=== PATIENT | female | born 2000 | race African-American/Black ===

== ENCOUNTER → 2024-03-27 08:51 | Outpatient (CLI) | payer OTHER, MEDICAID, SELFPAY | PROVIDERS: PCP Nurse Practitioner Family; Referring Provider Obstetrics & Gynecology; Visit Provider Obstetrics & Gynecology | DX: R10.2 Pelvic and perineal pain (principal) | CPT/HCPCS: 87491; 87563; 87591 ==

== ENCOUNTER 2024-09-03 10:25 | Day surgery (SDC) | payer OTHER, SELFPAY ==
[2024-08-28 13:49] VITALS: BMI 33.9
[2024-09-03] VITALS (8 sets, daily range): BP systolic 111–122; BP diastolic 55–82; PULSE 87–120; RESP 1–29; TEMP 36.5–36.8; O2SAT 97–100; BMI 32.5
--- NOTE | 2024-09-03 | PATH_ITS ---
[facility] Accession Number: [id number] No. of containers..01 Tissue . 01 Material submitted: . uterus - UTERUS, CERVIX AND BILATERAL FALLOPIAN TUBES . 01 Diagnosis: UTERUS, CERVIX, BILATERAL FALLOPIAN TUBES, HYSTERECTOMY AND BILATERAL SALPINGECTOMY: Histologically unremarkable cervix, uterus, secretory endometrium, and bilateral fimbriated fallopian tubes. Negative for malignancy. [facility] 09/05/2024 1420 Local . 01 Electronically signed: . Neida Mendieta DO, Pathologist NPI- [id number] . 01 Gross description: . Received in formalin with two patient identifiers and uterus, cervix, bilateral fallopian tubes, is an intact uterus (114 grams, 8.5 cm superior to inferior, 5.7 cm medial to lateral, and 5.0 cm anterior to posterior) with attached cervix (3.2 x 3.0 cm) and two detached, unoriented fallopian tubes (5.7 x 0.7 cm and 4.5 x 1.0 cm, respectively), with no additional adnexa. The ectocervix is pink-vu, smooth, and glistening with a patulous os, 1.0 cm in diameter. The anterior paracervical margin is inked blue while the posterior paracervical margin is inked black. . The endocervical canal has vu herringbone mucosa and measures 2.8 cm in length. The endometrial cavity is 2.5 cm from cornu to cornu and 4.9 cm in length with pink-vu, lush endometrium that averages 0.2 cm thick. The myometrium is pink-vu, moderately trabecular, and measures up to 1.9 cm in maximum thickness with nodules or lesions identified. . Both tubes have violaceous, smooth serosa with cystic structures up to 0.2 cm in greatest dimension filled with cloudy serous fluid. The lumen are stellate and unremarkable. [facility] sections are submitted as follows: . A1: Anterior cervix. A2: Posterior cervix. A3: Anterior full thickness section. A4: Posterior full thickness section. A5: Longer fallopian tube to include one-half of bisected fimbriae and cross sections. A6: Taylor fallopian tube to include one-half of bisected fimbriae and cross sections. ([id number]) /MRV 09/04/2024 1508 Local . 01 Pathologist provided ICD-10: N94.12 . 01 CPT . 956362 Specimen Comment: A courtesy copy of this report has been sent to [facility] Performed at: [address] [address], [place], [place] [id number] MD Otis Nicole MD Phone: [phone]
--- NOTE | 2024-09-03 10:48 | PM.PREOP ---
Pre-operative Note Interval Note History & Physical reviewed/Exam performed by Physician: Yes Changes to H&P: No H&P completed within 30 days and has changed as indicated here:: 08/13/24 ASA Class (for procedural sedation): II
[2024-09-03] MEDS: GENTAMICIN IV (10:55)
[2024-09-03] MEDS: SODIUM CHLORIDE 0.9% IV (10:55)
[2024-09-03 11:04] LABS: Add Manual Diff / Slide Review NO; Basophils Absolute Auto 0 /uL (0-100); Basophils Percent Auto 0.3 % (0-2); Eosinophils Absolute Auto 100 /uL (0-450); Eosinophils Percent Auto 0.9 % (2-4); Hematocrit 40.1 % (36-46); Hemoglobin 13.4 g/dL (12.0-16.0); Lymphocytes Absolute Auto 2300 /uL (1100-4500); Lymphocytes Percent Auto 33.8 % (25-40); Mean Corpuscular HGB Conc 33.3 % (30-36); Mean Corpuscular Hemoglobin 28.6 PG (26-34); Monocytes Absolute Auto 400 /uL (0-900); Monocytes Percent Auto 6.4 % (3-14); Neutrophils Absolute Auto 3900 /uL (1500-7000); Neutrophils Percent Auto 58.6 % (50-75); Platelet Count 307 X10^3/uL (150-400); Red Blood Cell Count 4.67 X10^6/uL (4.0-5.2); Red Cell Distribution Width 13.1 % (11.6-14.8); White Blood Cell Count 6.7 X10^3/uL (4.5-11.0)
[2024-09-03] MEDS: ACETAMINOPHEN 325 MG TABLET 975 MG PO (11:12)
[2024-09-03] MEDS: LACTATED RINGERS 1,000 ML 42 ML IV ×2 (11:13→13:15)
[2024-09-03] MEDS: CLINDAMYCIN 900 MG/50 ML PIGGYBACK 50 MG IV (11:39)
--- NOTE | 2024-09-03 11:53 | SUR.OPER ---
Lithotomy on padded OR bed, head on pillow, arms secured on padded arm boards at <90 degrees abduction. Legs secured in padded yellow fins stirrups.
[2024-09-03] MEDS: BUPIVACAINE 0.25% W/ EPI 30 ML VIAL INJ (12:16)
[2024-09-03] MEDS: MORPHINE 2 MG/ML INJ IV (14:42)
--- NOTE | 2024-09-03 14:59 | PM.OP.1 ---
Operative Date/Time/Diagnoses Date of procedure: 09/03/24 Time of procedure: 11:30 Pre-op diagnosis: chronic pelvic pain, AUB Post-op diagnosis: same Procedure & Clinicians Procedure: Laparoscopic assisted vaginal hysterectomy, bilateral salpingectomy Same procedure as scheduled: Yes Indications: AUB, chronic pelvic pain Surgeon: Dot Ulloa Master [employer]: Yuliana Condon Click Yes if Unassisted: No Anesthesia Type: General Operative Notes Findings: normal external female genitalia, perineum, anus, vagina, cervix intrabdominal survey notable for diffuse filmy adhesions within posterior CDS c/w possible endometriosis grossly normal appearing bilateral fallopian tubes and ovaries globular hyperemic appearance of uterus without gross anomaly Closure Type: primary Specimen(s): other (uterus, cervix, bilateral fallopian tubes ) Estimated Blood Loss (mL): 25 Blood products transfused: none Procedure in detail: The patient was taken to the operating room, placed on the operating table in the supine position and intubated with ETT.? The patient was then placed in the lithotomy position with her legs in Otto stirrups.? The patient was then examined under anesthesia with the above findings, then prepped and draped in a sterile fashion.? A lowry catheter was placed.? Time out was performed. A sterile speculum was inserted into the vagina.? The anterior cervix was grasped with single tooth tenaculum and under gentle traction the uterus was sounded to 8cm and the medium VCare manipulator was placed in the standard fashion and the balloon was inflated.? Attention was then turned to the abdominal portion of the case. A 5mm incision was made infraumbilically and abdominal entry was achieved under direct visualization using the 5mm VisaPort trocar.? Abdomen was insufflated to 15mmHg.? One right lateral and two left lateral 5-mm ports were placed in a similar manner under direct visualization.? The uterus was anteverted and abdominal survey was noted with findings as noted above. The Powerseal was used to dissect bilateral fallopian tubes away from the mesosalpinx.? The utero-ovarian artery was burned and ligated followed by dissection of the round ligament with the Powerseal device.? This was repeated on the contralateral side.? The uterine artery was then skeletonized after development of a bladder flap, coagulated, and divided. Once hemostasis was assured on the left side attention was turned to the right and the infundibulopelvic ligament, mesosalpinx, round ligament, and broad ligament were dissected in a fashion exactly the same as it had been on the left. The right uterine artery was then visualized after skeletonization and coagulated and divided. The uterus was seen to jamison after coagulation of both arteries and the cup was identified through the vaginal muscularis at its insertion with the body of the cervix. Circumferential excision of the vaginal cup was accomplished without difficulty using monopolar current and the uterus mobilized. Pneumoperitoneum was vented and the uterus was then removed through the vagina and preparations made for the vaginal portion of this case. A weighted speculum was placed in the vagina. The lateral apices of the vaginal cuff were identified and grasped using wide allis clamps. The vaginal cuff was then closed with 0-vicryl in serial figure-of-8 suture with incorporation of the uterosacral ligaments for continued apical support. Hemostasis confirmed and moistened vaginal packing placed. Gloves were changed and attention was once more returned to laparoscopic portion of case. Laparoscopic intra-abdominal survey repeated. The pelvis was suction irrigated with noted hemostasis of all wound beds. 20cc diluted bupivicaine instilled within posterior culdesac for further analgesia. Lateral trocars removed under direct visualization. The pneumoperitoneum was again vented and the infraumbilical trocar was removed. All incisions were closed with 4-0 monocryl in subcuticular fashion followed by application of dermabond. All counts correct x2. Patient was awakened from anesthesia, extubated without difficulty and transported to PACU in stable condition. Complications: none Post-operative Condition: stable Disposition: PACU
[2024-09-03] MEDS: OXYCODONE/ACETAMINOPHEN 5/325 TABLET 1 TAB PO (15:26)
[2024-09-03] MEDS: MORPHINE 4 MG/ML INJ IV (16:46)
[2024-09-03 16:51] LABS: Add Manual Diff / Slide Review NO; Basophils Absolute Auto 0 /uL (0-100); Basophils Percent Auto 0.1 % (0-2); Eosinophils Absolute Auto 0 /uL (0-450); Eosinophils Percent Auto 0.1 % (2-4); Hematocrit 37.1 % (36-46); Hemoglobin 12.1 g/dL (12.0-16.0); Lymphocytes Absolute Auto 500 /uL (1100-4500); Lymphocytes Percent Auto 4.3 % (25-40); Mean Corpuscular HGB Conc 32.5 % (30-36); Mean Corpuscular Hemoglobin 28.1 PG (26-34); Mean Corpuscular Volume 86.3 fL (80-100); Monocytes Absolute Auto 100 /uL (0-900); Monocytes Percent Auto 0.8 % (3-14); Neutrophils Absolute Auto 11000 /uL (1500-7000); Neutrophils Percent Auto 94.7 % (50-75); Platelet Count 272 X10^3/uL (150-400); Red Cell Distribution Width 13.5 % (11.6-14.8); White Blood Cell Count 11.6 X10^3/uL (4.5-11.0)
[2024-09-03] MEDS: ACETAMINOPHEN 325 MG TABLET 650 MG PO ×2 (16:57→22:55)
[2024-09-03] MEDS: HYDROCODONE/ACET 5/325 TABLET 1 TAB PO ×2 (18:43→22:55)
[2024-09-03] MEDS: KETOROLAC 30 MG/ML VIAL IV (18:44)
[2024-09-04] VITALS: BP 127/57; PULSE 88; RESP 18; TEMP 36.7; O2SAT 97
[2024-09-04] MEDS: KETOROLAC 30 MG/ML VIAL IV ×3 (01:57→12:38)
[2024-09-04] MEDS: ACETAMINOPHEN 325 MG TABLET 650 MG PO (05:10)
--- NOTE | 2024-09-04 07:07 | P.DS_ITS ---
History of Present Illness History of Present Illness Date Patient Seen: 09/04/24 Time Patient Seen: 07:07 Date of Onset of Symptoms: 09/03/24 Chief complaint: POD1 s/p LAVH/BS Narrative: Pt resting in bed, states adequate analgesia overnight, +flatus, tolerating diet. Has not yet had lowry removed/no ambulation yet. Notes persistent mid upper back pain c/w diaphragmatic irritation from pneumoperitoneum. Discharge Providers Provider Date of admission: 09/03/24 Discharge Date: 09/04/24 Primary care physician: CAROLYN Perkins Discharge provider: Dot Ulloa MD Summary Hospital Course Discharge Diagnosis: s/p LAVH/BS Hospital Course: 24yo admitted to facility 09/03/24 for planned definitive surgical management of persistent deep chronic pelvic pain/dyspareunia refractory to conservative management. Patient underwent procedure without difficulty, vaginal closure of cuff secondary with vaginal packing and lowry left in place overnight. Lowry catheter was discontinued AM of POD1. Pt able to void, ambulate independently, adequate analagesia with PO, +ROBF. Patient was discharged to home on POD1 meeting all discharge milestones, strict activity restrictions reviewed prior to discharge. Status at Discharge Cognitive/behavioral status at discharge: oriented Functional status at discharge: independent ambulation Overall status at discharge: patient is back to baseline Time Spent with Patient Time spent: Less than 30 minutes Exam Vital Signs (past 8 hours): - 09/04/24 00:00 Temperature 98.0 F Pulse Rate 88 Respiratory Rate 18 Blood Pressure 127/57 L Pulse Oximetry 97 Oxygen Flow Rate 0 Oxygen Delivery Method Room Air Oxygen Flow Rate 0 Const General: cooperative, comfortable and well developed Nutritional Appearance: obese Orientation: alert, awake and oriented x3 Limitations: mental status not altered Resp Effort & Inspection: normal respiratory effort and able to speak in complete sentences Cardio Pulses: normal peripheral pulses GI Inspection: obesity Palpation: soft Auscultation: normal bowel sounds Other: trocar insertion sites c/d/i, dermabond in place, very mild TTP without rebound/guarding Other: vaginal packing removed, <50% saturated Back/Spine/Pelvis Back: normal to inspection Skin General: no rashes or lesions noted Neuro General: patient alert, patient awake and patient oriented x3 Extrem General: normal to inspection Other: SCDs in place Psych Mental Status: mental status grossly normal Judgment: judgment good Objective Labs 09/03/24 16:32 Labs: Laboratory Results - last 24 hr 09/03/24 09/03/24 10:35 16:32 WBC 6.7 11.6 H D RBC 4.67 4.30 Hgb 13.4 12.1 Hct 40.1 37.1 MCV 86.0 86.3 MCH 28.6 28.1 MCHC 33.3 32.5 RDW 13.1 13.5 Plt Count 307 272 Neut % (Auto) 58.6 94.7 H D Lymph % (Auto) 33.8 4.3 L D [place] % (Auto) 6.4 0.8 L Eos % (Auto) 0.9 L 0.1 L Baso % (Auto) 0.3 0.1 Neut # (Auto) 3900 04478 H Lymph # (Auto) 2300 500 L [place] # (Auto) 400 100 Eos # (Auto) 100 0 Baso # (Auto) 0 0 PFSH Medical History (Updated 08/28/24 @ 14:03 by Flavia Marte RN) PCOS (polycystic ovarian syndrome) Asthma (~2009) Anxiety (~2017) Fractures (~2011) Ankle pain (~2011) Pelvic floor dysfunction in female Deep dyspareunia Surgical History (Updated 04/16/24 @ 20:59 by Griselda Cho) Anesthesia History of repair of ACL (~02/2016) Family History (Updated 04/16/24 @ 21:00 by Griselda Cho) Mother History of hysterectomy History of endometriosis Social History household members: spouse and children Smoking Status: Never smoker alcohol intake: current Discharge Assessment & Plan Assessment and Plan Assessment: 24yo POD1 s/p LAVH/BS, doing well Postop excellent postop course strict activity precautions reviewed planned 2wk postop Discharge Plan Discharge Plan Patient Disposition: Home Provider Discharge Comment: No lifting >10-15lbs for 6 weeks. Nothing in the vagina for 6 weeks - no tampons, intercourse, douching, swimming in fresh water/pools/hot tubs. Tub baths are okay after 2 weeks if the tub is cleaned well first. Discharge orders & Medications Discharge Orders: Discharge (Order); Ordered 09/04/24 Ordered By: Dot Ulloa Prescriptions: New ibuprofen 600 mg tablet 600 mg PO TID Qty: 30 0RF hydrocodone-acetaminophen 5-325 mg tablet 1 tab PO Q6H PRN (Reason: pain) Qty: 12 0RF sennosides [Senna Lax] 8.6 mg tablet 8.6 mg PO BEDTIME Qty: 30 0RF Follow up/Referrals: Echo Dejesus ARNP [Primary Care Provider] - Diet/Activity/Treatments Diet: Regular Skin/Wound/Dressing Care Report to your healthcare provider any signs of infection, such as:: chills, fever, increased pain and unusual drainage Visit Report/Discharge Packet Instructions: DI for Hysterectomy, DI for Laparoscopy, DI for Prescription Opioid Use Stand Alone Forms: Patient Portal/API Discharge Data Primary Care Provider: Echo Dejesus Attending Provider: Dot Ulloa VTE Deep Vein Thrombosis/Pulmonary Embolism Present on Admission: No PROFEE Charge Codes Discharge inpatient/observation: [id number]
[2024-09-04 08:00] VITALS: BP 113/68; PULSE 63; RESP 18; TEMP 37; O2SAT 97
[2024-09-04] MEDS: DOCUSATE 100 MG CAPSULE PO (08:34)
[2024-09-04] MEDS: MORPHINE 2 MG/ML INJ IV ×2 (09:52→15:05)
--- NOTE | 2024-09-04 11:12 | CM.DANOTE ---
DCP Assessment Note pt is a 24yo F here POD1 lap assisted hysterectomy with Dr. Ulloa. PCP Echo BONNER and Ramsey diaz UPPER CASER reviewed EMR. Per chart, pt likely to dc later today after voiding indep. Per RN, no obvious/anticipated CM needs. UPPER CASER met with pt in room and introduced self and role. Pt reports living with spouse in [place], indep/drives at baseline. Reports voiding indep, eager to dc home. denies any CM needs at this time P: dc home with family support , transport in POV. no identified barriers to safe dc home at this time, CM team will continue to follow as needed ROBERT Raymundo Discharge Planning/Care Management CM Discharge Assessment Start: 09/04/24 11:02 Freq: Status: Active Protocol: Document 09/04/24 11:03 (Rec: 09/04/24 11:12 [id number]) Discharge Planning Assessment Assigned [employer] ROBERT Shipley DPOA/Assigned Designee Name Flavio, spouse Contact Information [phone] Advance Directives? No History Provided By Patient Prior Living Arrangements House Household Members spouse,children Type of transporation used prior to Drives own vehicle admit Independent with ADL's Yes Is patient alert and oriented? Yes Caregiver for Another Yes Barriers to Discharge No Discharge Plan Home Referrals Initiated None needed Review Status In Process Please Provide Date Initial DC 09/04/24 Assessment Was Performed Next Review Type Continued Stay Review Pre-Anesthesia Assessment Start: 08/28/24 13:49 Freq: Status: Active Protocol: Document 08/28/24 13:49 CAB (Rec: 08/28/24 14:03 CAB [id number]) Pre-Anesthesia Assessment PAC Comment Chart review 08/28/24 Preferred Name Roxana (Pronouced Alannah) Patient Information Reviewed Via Chart Review Primary Care Provider Echo Dejesus Seen Specialist in Last 12 Months Yes Specialist Seen Resaw Machine Operator Primary Language Romansh Lead Nitrate Processor Required No Height 149.86 cm Weight 76.204 kg Body Mass Index (BMI) 33.9 Barriers to Learning None Hx Anesthesia Reactions No Anesthesia Review Requested No Remote Broadcast Engineer No Smoking Status Never smoker Pain Present Pain Reported History of Falling (Recent or History of No ) Patient is completely paralyzed or No completely immobile Mental Status Oriented to own ability Is patient on oxygen? No Hx Sleep Apnea No Currently Taking a Beta Trice No Anti-Coagulant Therapy No Has a Business Objects No Cardiac Testing No Hx Pacemaker/ICD No Pacemaker Rep Required? No Cardiac Clearance Received No Genitourinary Symptoms Pelvic Pain Urinary Catheter Present No Hx Urinary Self Catheterization No Diabetes No Patient No Marital Status Lives With spouse,children Patient Discharge Plan Description Return Home
[2024-09-04 11:21] VITALS: TEMP 36.9
[2024-09-04] MEDS: HYDROCODONE/ACET 5/325 TABLET 1 TAB PO (11:21)
[2024-09-04 12:38] VITALS: TEMP 36.8
--- NOTE | 2024-09-04 15:33 | PC.NURSE ---
Discharge Note Patient A&O, VSS, RA, no complaints of pain/discomfort. Discharge packet reviewed with patient, all questions/concerns addressed. PIV discontinued. Patient able to dress self and pack all belongings. Patient taken down via wheelchair to POV accompanied by mom.
== END 2024-09-04 15:00 | disposition home or self-care (01) ==
LOC: OR 10:28 → AC 10:33
PROVIDERS: PCP Nurse Practitioner Family; Referring Provider Obstetrics & Gynecology; Visit Provider Obstetrics & Gynecology
PROC: 0UT94ZZ Resection of Uterus, Percutaneous Endoscopic Approach (ICD-10-PCS; CPT 58571; principal; 2024-09-03 13:00)
DX: N94.12 Deep dyspareunia (principal); N93.9 Abnormal uterine and vaginal bleeding, unspecified; R10.2 Pelvic and perineal pain; G89.29 Other chronic pain
CPT/HCPCS: 58571; 36415; 81025; 85025; J0330; J1100; J1171; J1885; J2250; J2270; J2405; J2704; J3010; J3490

== ENCOUNTER 2025-01-15 07:30 | Outpatient (RCR) | payer OTHER, SELFPAY ==
[2024-09-03 11:07] VITALS: BMI 32.5
--- NOTE | 2025-01-14 20:40 | PT.OIE ---
Addendum entered and electronically signed by Greta Lopez, PT 01/15/25 08:44: Error in reporting request for referral/consult of vaginal assessment. Please disregard request. Original Note: Current Diagnoses Deep dyspareunia (01/14/25) Past Medical History (Last Updated 01/09/25 @ 12:18 by Dot Ulloa MD) Ankle pain (~2011) Anxiety (~2017) Asthma (~2009) Deep dyspareunia Deep dyspareunia in female Endometriosis determined by laparoscopy Fractures (~2011) Menorrhagia PCOS (polycystic ovarian syndrome) Pelvic floor dysfunction in female Past Surgical History (Last Updated 01/09/25 @ 12:18 by Dot Ulloa MD) Anesthesia History of repair of ACL (~02/2016) S/P hysterectomy Visit Care Team Role Provider Type CAROLYN Perkins Family Provider Non-Staff Primary Care Provider Specialty: Medical Address: [address] [place] [address], [id number] Email: Dot Ulloa MD Attending Provider Physician Referring Provider Specialty: SETTLEMENT WORKER Address: [address] [place] [address], [address], [address] Email: [email or web address] Physical Therapy Initial Evaluation PT-OP-A Visit Information Start: 01/13/25 19:43 Freq: Status: Active Protocol: Document 01/14/25 10:46 LRN (Rec: 01/14/25 11:34 LRN Laptop) Out-Patient Physical Therapy Visit Information Visit Information Visit Type Initial Evaluation Visit Start Time 10:46 Visit Stop Time 11:32 Visit Number 1 Evaluation Information Evaluation Date 01/14/25 Precautions Precautions Hysterectomy - 09/03/24, ACL rpr - 02/2016 PT-OP-B Current Condition Start: 01/13/25 19:43 Freq: Status: Active Protocol: Document 01/14/25 10:46 LRN (Rec: 01/14/25 11:34 LRN Laptop) Current Condition History of Current Condition Onset Date 01/2023 Current Complaints Pain with deep thrust during intercourse. History of Current Pain with intercourse, had hyste due to inflamed cervix Condition and uterus; therefore now pain with intercourse. She states Dr. Ulloa said there was evidence of endometriosis (not official diagnosed). Has had severe periods and cramps since her period started. Was diagnosed with PCOS ~ age 16. During 3rd (all pregnancies vaginal, no complications, had episiotomy with 1st born, no tearing with other children, ) had pain with intercourse, then after never went away. Better since hyste surgery, began to get slightly painful intercourse 2 wks ago. Vaginal appt last week with vaginal ultrasound, doctor states she thinks endometriosis could be coming back with scar tissue. She thinks she has swelling with her cycle. She notes that with intercourse, when the thrust is aimed towards her back (partner positioned on top or from behind) there is no pain. Pain is present when thrust is pointed towards the abdomen. Thought is that there is abdominal scar tissue causing the pain. She reports intercourse 7x/wk, always pain, but is minimal with adjust positioning, and sometimes w/o full penetration. Denies pain any other time, other than with intercourse. Prior Treatments and PT in [facility] PT, without internal Tests work prior to surgery. Developmental History Developmental Children ages 1, 2, 3 (first child to turn 2 in January). History Normal bowel types 3,4 No urinary leakage or pain with urination, had pain with use of tampons 6 wks and would fall out, prior to surgery. Treatment Goals Patient/Caregiver Pt goals: Goals Reduce or eliminate pain with intercourse. 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 Factors That May Lives in [facility] Effect Therapy/ Wants to be able to have intercourse 7x/week. Recovery PT-OP-C Subjective Start: 01/13/25 19:43 Freq: Status: Active Protocol: Document 01/14/25 10:46 LRN (Rec: 01/14/25 11:34 LRN Laptop) Patient Questionnaires Pelvic Pain and Urgency/Frequency Patient Symptom Scale Pelvic Pain Score 9 OP-PT Pain Assessment Pain Assessment Grid Paper Pain Yes Assessment Grid Completed Location LBP Pain Location Across Sacral and Iliac Crest level (area of epidurals) Details Intensity 4 Scale Used Numeric (0 - 10) Description Aching Frequency Intermittent Other Pain Prolonged standing Aggravating Factors Lower abdomen Pain Location Lower abdomen pain with deep thrust Details Intensity 6 Scale Used Numeric (0 - 10) Description Sharp Other Pain When thrust is directed towards abdomen. Aggravating Factors PT-OP-I Pelvic Floor Start: 01/13/25 19:43 Freq: Status: Active Protocol: Document 01/14/25 10:46 LRN (Rec: 01/14/25 11:34 LRN Laptop) Pelvic Floor Assessment Urine Voiding Frequency 3-6 Pelvic Clock Pelvic Clock Other No tenderness or tightness noted. Contraction Ability Manual Muscle 3 Testing Left Manual Muscle 3 Testing Right Manual Muscle 3 Testing Anterior Manual Muscle 3 Testing Posterior Muscle Endurance ( 10 Seconds) Number of Quick 3 Contractions In 10 Seconds Comments Pelvic Floor No Bowel or bladder dysfunction. Comments Pt had no significant superficial PF contractions noted . Deep PF contractions are 3/5 PT-OP-J Posture/Palpation/Skin Start: 01/13/25 19:43 Freq: Status: Active Protocol: Document 01/14/25 10:46 LRN (Rec: 01/14/25 11:34 LRN Laptop) Posture Evaluation Position Standing Head/C-Spine Posture Forward Head L-Spine Posture Increased Lordosis Shoulder Posture (L) Elevated Scapula Posture (R) Depressed Foot Arch (L) No Arch,(R) No Arch Comments Posture Comments Dowagers hump, L shoulder and dieudonne elbows slightly flexed, forearms slightly flexed, fingers curled Thumbs AB. PT-OP-K Range of Motion Start: 01/13/25 19:43 Freq: Status: Active Protocol: Document 01/14/25 10:46 LRN (Rec: 01/14/25 11:34 LRN Laptop) Lumbar Spine Range of Motion Lumbar Spine Active Degrees Testing Position Standing Flexion 130 Extension 35 Rotation Left 35 Rotation Right 45 Lateral Flexion Left 37 Lateral Flexion 37 Right Hip Goniometric Range of Motion Hip Right Passive Testing Position Supine Internal Rotation 30 External Rotation 55 Left Passive Testing Position Supine Internal Rotation 40 External Rotation 60 Hip ROM Limitations Hip ROM Limitations Soft Tissue Tightness PT-OP-M Strength Start: 01/13/25 19:43 Freq: Status: Active Protocol: Document 01/14/25 10:46 LRN (Rec: 01/14/25 11:34 LRN Laptop) Trunk Strength Trunk Manual Muscle Testing Flexion 4+ Good+ Hip Strength Hip Manual Muscle Testing Right Flexion (L2) 5 Normal Left Flexion (L2) 5 Normal PT-OP-Q Treatments Start: 01/13/25 19:43 Freq: Status: Active Protocol: Document 01/14/25 10:46 LRN (Rec: 01/14/25 11:34 LRN Laptop) Self-Care/Home Management Treatment Education Other Education Discussed results of evaluation, goals, treatment, and plan of care (POC) with pt; pt agreeable to evaluation, goals, treatment and POC. Activities Self-Care/Home I/S pt in supine lying with legs on wall for roll in/ Management outs x 5-10' before intercourse and during intercourse Activities hips elevated on pillow. PT-OP-T Assessment and Plan Start: 01/13/25 19:43 Freq: Status: Active Protocol: Document 01/14/25 10:46 LRN (Rec: 01/14/25 11:34 LRN Laptop) Physical Therapy Assessment Rehab Potential Rehabilitation Good Potential Evaluation Complexity Number of Personal 3 or More Factors/ Comorbidities Number of Body 4 or More Systems Impaired Clinical Evolving Presentation at Evaluation Impairments Impairments Activity Tolerance,Pain,Posture,ROM,Soft Tissue Mobility,Strength,Tone Goals Two Impairment Dyspareunia with deep thrust aimed at abdomen Usp Goal (LTG) Decrease or eliminate pain with intercourse to improve pt pleasure with intercourse and reduce hesitation for intimacy with partner. LTG Duration 04/15/25 One Impairment Pt lacks appropriate self care HEP Short Term Goal (STG Pt will be able to reduce hesitation and pain with ) intercourse with a pre intercourse routine (stretching, deep breathing and mindfulness technique). STG Duration 02/25/25 Candy Maker Helper Goal (LTG) Pt will be independent with a self care HEP of abdominal soft tissue mobilization, hip and trunk stretches. LTG Duration 04/15/25 Assessment Summary Assessment Pt is a 24 yo female who is 3G3P, who had pain with intercourse during of her third child. She underwent hyste surgery with resolve of pain until 2 wks ago she began to have slightly painful intercourse, noted with deep thrust and when the thrust is aimed at her abdomen. Her pain is less when thrust is aimed to her back. She has postural changes with increased lordosis and decreased hip rotational mobility (trunk mobility is very good). Her PF is strong and she appears to have trouble relaxing her PF between contractions. She demonstrates increased core pressure with bed transfers and restriction is felt at end of vaginal canal, indicating possible drop of her intact cervix or from bowel restriction. The pt denies bowel or bladder dysfunction. The pt will benefit from skilled physical therapy for pt education (transfer & core pressure mgmt & HEP), pelvic & hip mobility ex's, STM of abdomen and LB and use of biofeedback for neuro- education to improve pt ability to relax her PF to improve comfort with intercourse. The pt will be traveling from [facility] for therapy; therefore we will start 2x/week to get the pt placed on a HEP and for STM and education, then will reduce to 1x/week for progression of program. Physical Therapy Plan Frequency and Duration Frequency of 2x/Week Treatment Duration of 13 treatment (weeks) Plan of Care Start 01/14/25 Date Plan of Care End 04/15/25 Date Therapeutic Interventions Therapeutic Home Exercise Program,Joint Mobilizations,Manual Interventions Therapy,Neuromuscular Re-education,Self-Care/Home Management,Soft Tissue Mobilization,Therapeutic Activities,Therapeutic Exercises Modalities Biofeedback Other Referrals/Consults Referrals/Consults Assessment of bumps in vaginal canal. Recommended Next Visit Focus/Plan Next Note Type Treatment Note Next Visit Plan Dyspareunia Rehab for deep thrust pain aimed at abdomen . Assess for DR & hip/core strength, recheck PF prolapse, strength, endurance STM if pain, Biofeedback, PF training for relaxation after contraction, Exer's: hips stretches. Pt education: Relaxation techniques prior to intercourse, core pressure mgmt with transfers & ADLs. POC: Pt education, Manual therapy. Biofeedback with vaginal sensor for PF >< awareness and strengthening, Therapeutic Exercises, Therapeutic Activities, Neuromuscular Reeducation.
--- NOTE | 2025-01-15 08:41 | PT.OTN ---
Current Diagnoses Deep dyspareunia (01/15/25) Physical Therapy Treatment Note PT-OP-A Visit Information Start: 01/13/25 19:43 Freq: Status: Active Protocol: Document 01/15/25 07:30 LRN (Rec: 01/15/25 08:37 LRN Laptop) Out-Patient Physical Therapy Visit Information Visit Information Visit Type Treatment Note Visit Start Time 07:30 Visit Stop Time 08:15 Visit Number 2 Evaluation Information Evaluation Date 01/14/25 Precautions Precautions Hysterectomy - 09/03/24, ACL rpr - 02/2016 PT-OP-B Current Condition Start: 01/13/25 19:43 Freq: Status: Active Protocol: Document 01/14/25 10:46 LRN (Rec: 01/14/25 11:34 LRN Laptop) Current Condition History of Current Condition Onset Date 01/2023 Current Complaints Pain with deep thrust during intercourse. History of Current Pain with intercourse, had hyste due to inflamed cervix Condition and uterus; therefore now pain with intercourse. She states Dr. Ulloa said there was evidence of endometriosis (not official diagnosed). Has had severe periods and cramps since her period started. Was diagnosed with PCOS ~ age 16. During 3rd (all pregnancies vaginal, no complications, had episiotomy with 1st born, no tearing with other children, ) had pain with intercourse, then after never went away. Better since hyste surgery, began to get slightly painful intercourse 2 wks ago. Vaginal appt last week with vaginal ultrasound, doctor states she thinks endometriosis could be coming back with scar tissue. She thinks she has swelling with her cycle. She notes that with intercourse, when the thrust is aimed towards her back (partner positioned on top or from behind) there is no pain. Pain is present when thrust is pointed towards the abdomen. Thought is that there is abdominal scar tissue causing the pain. She reports intercourse 7x/wk, always pain, but is minimal with adjust positioning, and sometimes w/o full penetration. Denies pain any other time, other than with intercourse. Prior Treatments and PT in [facility] PT, without internal Tests work prior to surgery. Developmental History Developmental Children ages 1, 2, 3 (first child to turn 2 in January). History Normal bowel types 3,4 No urinary leakage or pain with urination, had pain with use of tampons 6 wks and would fall out, prior to surgery. Treatment Goals Patient/Caregiver Pt goals: Goals Reduce or eliminate pain with intercourse. 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 Factors That May Lives in [place] Effect Therapy/ Wants to be able to have intercourse 7x/week. Recovery PT-OP-C Subjective Start: 01/13/25 19:43 Freq: Status: Active Protocol: Document 01/14/25 10:46 LRN (Rec: 01/14/25 11:34 LRN Laptop) Patient Questionnaires Pelvic Pain and Urgency/Frequency Patient Symptom Scale Pelvic Pain Score 9 OP-PT Pain Assessment Pain Assessment Grid Paper Pain Yes Assessment Grid Completed Location LBP Pain Location Across Sacral and Iliac Crest level (area of epidurals) Details Intensity 4 Scale Used Numeric (0 - 10) Description Aching Frequency Intermittent Other Pain Prolonged standing Aggravating Factors Lower abdomen Pain Location Lower abdomen pain with deep thrust Details Intensity 6 Scale Used Numeric (0 - 10) Description Sharp Other Pain When thrust is directed towards abdomen. Aggravating Factors PT-OP-I Pelvic Floor Start: 01/13/25 19:43 Freq: Status: Active Protocol: Document 01/15/25 07:30 LRN (Rec: 01/15/25 08:37 LRN Laptop) Pelvic Floor Assessment Pelvic Clock Pelvic Clock Other Tenderness at L Obturator Internus. Prolapse Cystocele Grade 1 Urethrocele Grade 2 Perineal Descent Resting Absent Bearing Absent PT-OP-J Posture/Palpation/Skin Start: 01/13/25 19:43 Freq: Status: Active Protocol: Document 01/15/25 07:30 LRN (Rec: 01/15/25 08:37 LRN Laptop) Palpation Assessment Location Abdomen Palpation Location Diastasis Rectus assessment Palpation Findings Tenderness Palpation Details Umbilicus 3 above: Closed Umbilicus 2 above: 1.5 finger widths Umbilicus 1 above: 1.5 finger widths, tender Umbilicus Umbilicus: 1 below: 2.0 finger widths, tender Umbilicus: 2 below: 2.0 finger widths, tender Umbilicus: 3 below: 1.5 finger widths, shallow, tender Umbilicus: 4 below: Closed (at pubic bone). PT-OP-K Range of Motion Start: 01/13/25 19:43 Freq: Status: Active Protocol: Document 01/14/25 10:46 LRN (Rec: 01/14/25 11:34 LRN Laptop) Lumbar Spine Range of Motion Lumbar Spine Active Degrees Testing Position Standing Flexion 130 Extension 35 Rotation Left 35 Rotation Right 45 Lateral Flexion Left 37 Lateral Flexion 37 Right Hip Goniometric Range of Motion Hip Right Passive Testing Position Supine Internal Rotation 30 External Rotation 55 Left Passive Testing Position Supine Internal Rotation 40 External Rotation 60 Hip ROM Limitations Hip ROM Limitations Soft Tissue Tightness PT-OP-M Strength Start: 01/13/25 19:43 Freq: Status: Active Protocol: Document 01/15/25 07:30 LRN (Rec: 01/15/25 08:37 LRN Laptop) Trunk Strength Trunk Manual Muscle Testing Flexion 4+ Good+ Core Stabilization Strength is 4+/5 with rotation. Hip Strength Hip Manual Muscle Testing Right Internal Rotation 4 Good Comments Hip Cramped with hip IR testing. Strength is 5/5 except as indicated above. Left Internal Rotation 4+ Good+ Comments Hip Cramped with hip IR testing. Strength is 5/5 except as indicated above. PT-OP-Q Treatments Start: 01/13/25 19:43 Freq: Status: Active Protocol: Document 01/15/25 07:30 LRN (Rec: 01/15/25 08:37 LRN Laptop) Therapeutic Exercises Supine Exercises Hip flexor stretch Side bilateral Reps/Minutes 60 SH x 1 each, extra time for determining best clarissa stretch Piriformis stretch Side bilateral Reps/Minutes 60 SH x 1 each, extra time for determining best clarissa stretch Comments R side tighter, but internally OI L side is tender TA/head lifts Supine Exercise Name TA Reps/Minutes Quick TA head lifts & Endurance 3 breath (10SH hold) x 10, Comments Cued to not suck in breath to get TA tightening. Sidelying Exercises TA tightening Sidelying Exercise R>L (R weaker than L) Name Side bilateral Reps/Minutes 3 breath (10SH) x 8 Comments Cued to relax upper body while doing TA. Self-Care/Home Management Treatment Education Other Education Discussed and educated pt in specifics for completion of in use of Bladder Diary and I/S in tracking for 1 week. Activities Self-Care/Home Issued Bladder diary handout. Management Issued HEP: Hip flexor & Piriformis stretch (sup, sit, Activities longsit), TA tightening (4pt, I/S for sidelie R>L, & supine). PT-OP-T Assessment and Plan Start: 01/13/25 19:43 Freq: Status: Active Protocol: Document 01/15/25 07:30 LRN (Rec: 01/15/25 08:37 LRN Laptop) Physical Therapy Assessment Goals Two Impairment Dyspareunia with deep thrust aimed at abdomen Correction Goal (LTG) Decrease or eliminate pain with intercourse to improve pt pleasure with intercourse and reduce hesitation for intimacy with partner. LTG Duration 04/15/25 One Impairment Pt lacks appropriate self care HEP Short Term Goal (STG Pt will be able to reduce hesitation and pain with ) intercourse with a pre intercourse routine (stretching, deep breathing and mindfulness technique). 01/15/25: Reviewed I/S program last session of supine lying w/hips on pillows with legs up on wall for static positioning. STG Duration 02/25/25 progressed 01/15/25 Electrician Second Goal (LTG) Pt will be independent with a self care HEP of abdominal soft tissue mobilization, hip and trunk stretches. 01/15/25: HEP: Hip flexor & Piriformis stretch (sup, sit, longsit), TA tightening (4pt, I/S for sidelie R>L, & supine). LTG Duration 04/15/25 progressed 01/15/25 Assessment Summary Assessment Reporting error of bumps in vagina. Pt is a 24 yo female with dyspareunia with deep thrust directed towards abdomen (not to back), s/p hyste (uterus, fallopian tubes), also with urethra prolapse/?bladder prolapse of grade 1-2, tenderness of L OI, and at DR ~1 -3 inches above & below umbilicus; incr'd lordosis, decr'd hip rotational mobility; decr'd ability to relax PF; lacks core pressure mgmt knowledge, and possible need for fluid mgmt education although pt denies bowel or bladder dysfunction. Today, pt demonstrates tenderness of the abdomen 1-2 inches above umbilicus and 2-3 inches below umbilicus with DR present. Internally, pt is tender at Obturator Internus of the L hip. Weakness of TA/core, hip Mando IR and tightness of hip flexor/IT Band. Pt was receptive to starting HEP of hip mobility and TA strengthening ex's. Physical Therapy Plan Frequency and Duration Frequency of 2x/Week Treatment Duration of 13 treatment (weeks) Plan of Care Start 01/14/25 Date Plan of Care End 04/15/25 Date Other Referrals/Consults Referrals/Consults Please disregard previous request for assessment of Recommended bumps in vagina, due to error in reporting. Next Visit Focus/Plan Next Note Type Treatment Note Next Visit Plan Next: recheck PF strength, endurance STM L OI, Abdomen urachus, review hips stretches, TA ex, Biofeedback assessment, PF training for relaxation after contraction, Exer's: Hip IR strengthening/TA tightening. Pt education: Relaxation techniques prior to intercourse, Core Pressure mgmt with transfers & ADLs. Manual: Urachus, L OI, Hip Flexor/IT band. POC: Dyspareunia Rehab for deep thrust pain aimed at abdomen, urethra/?bladder grade 1-[address]apse, [address] protection, core stabilization, PF relaxation, hip mobility improvement. Rx: Pt education, Manual therapy. Biofeedback with vaginal sensor for PF >< awareness, Therapeutic Exercises, Therapeutic Activities, Neuromuscular Reeducation.
--- NOTE | 2025-04-05 17:38 | PT-OP ANOTE ---
Per phone conversation the pt states she is doing alright and she is doing he stretches she was given. She is not able to return to therapy because she doesn't have a sitter for her children; therefore is agreeable to discharge from physical therapy.
--- NOTE | 2025-04-05 17:56 | PT.OPDS ---
Current Diagnoses Deep dyspareunia (01/15/25) Visit Care Team Role Provider Type CAROLYN Perkins Family Provider Non-Staff Primary Care Provider Specialty: Medical Address: [address], [place], [address] Email: Dot Ulloa MD Attending Provider Physician Referring Provider Specialty: RESIN FILTERER Address: [address] [place] [address], [address], [address] Email: [email or web address] Visit Number Visit Number 2 Discharge Summary PT-OP-A Visit Information Start: 01/13/25 19:43 Freq: Status: Active Protocol: Document 01/15/25 07:30 LRN (Rec: 01/15/25 08:37 LRN Laptop) Out-Patient Physical Therapy Visit Information Visit Information Visit Type Treatment Note Visit Start Time 07:30 Visit Stop Time 08:15 Visit Number 2 Evaluation Information Evaluation Date 01/14/25 Precautions Precautions Hysterectomy - 09/03/24, ACL rpr - 02/2016 PT-OP-B Current Condition Start: 01/13/25 19:43 Freq: Status: Active Protocol: Document 01/14/25 10:46 LRN (Rec: 01/14/25 11:34 LRN Laptop) Current Condition History of Current Condition Onset Date 01/2023 Current Complaints Pain with deep thrust during intercourse. History of Current Pain with intercourse, had hyste due to inflamed cervix Condition and uterus; therefore now pain with intercourse. She states Dr. Ulloa said there was evidence of endometriosis (not official diagnosed). Has had severe periods and cramps since her period started. Was diagnosed with PCOS ~ age 16. During 3rd (all pregnancies vaginal, no complications, had episiotomy with 1st born, no tearing with other children, ) had pain with intercourse, then after never went away. Better since hyste surgery, began to get slightly painful intercourse 2 wks ago. Vaginal appt last week with vaginal ultrasound, doctor states she thinks endometriosis could be coming back with scar tissue. She thinks she has swelling with her cycle. She notes that with intercourse, when the thrust is aimed towards her back (partner positioned on top or from behind) there is no pain. Pain is present when thrust is pointed towards the abdomen. Thought is that there is abdominal scar tissue causing the pain. She reports intercourse 7x/wk, always pain, but is minimal with adjust positioning, and sometimes w/o full penetration. Denies pain any other time, other than with intercourse. Prior Treatments and PT in [facility], without internal Tests work prior to surgery. Developmental History Developmental Children ages 1, 2, 3 (first child to turn 2 in January). History Normal bowel types 3,4 No urinary leakage or pain with urination, had pain with use of tampons 6 wks and would fall out, prior to surgery. Treatment Goals Patient/Caregiver Pt goals: Goals Reduce or eliminate pain with intercourse. 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 Factors That May Lives in [facility] Therapy/ Wants to be able to have intercourse 7x/week. Recovery PT-OP-C Subjective Start: 01/13/25 19:43 Freq: Status: Active Protocol: Document 04/05/25 17:40 LRN (Rec: 04/05/25 17:54 LRN Laptop) OP-PT Subjective Patient Comments Patient Comments Per phone converstation the pt states she is doing her home exercises but is not able to return to therapy because she doesn't have a sitter for her children and is agreeable to discharge from physical therapy. PT-OP-I Pelvic Floor Start: 01/13/25 19:43 Freq: Status: Active Protocol: Document 01/15/25 07:30 LRN (Rec: 01/15/25 08:37 LRN Laptop) Pelvic Floor Assessment Pelvic Clock Pelvic Clock Other Tenderness at L Obturator Internus. Prolapse Cystocele Grade 1 Urethrocele Grade 2 Perineal Descent Resting Absent Bearing Absent PT-OP-J Posture/Palpation/Skin Start: 01/13/25 19:43 Freq: Status: Active Protocol: Document 01/15/25 07:30 LRN (Rec: 01/15/25 08:37 LRN Laptop) Palpation Assessment Location Abdomen Palpation Location Diastasis Rectus assessment Palpation Findings Tenderness Palpation Details Umbilicus 3 above: Closed Umbilicus 2 above: 1.5 finger widths Umbilicus 1 above: 1.5 finger widths, tender Umbilicus Umbilicus: 1 below: 2.0 finger widths, tender Umbilicus: 2 below: 2.0 finger widths, tender Umbilicus: 3 below: 1.5 finger widths, shallow, tender Umbilicus: 4 below: Closed (at pubic bone). PT-OP-K Range of Motion Start: 01/13/25 19:43 Freq: Status: Active Protocol: Document 01/14/25 10:46 LRN (Rec: 01/14/25 11:34 LRN Laptop) Lumbar Spine Range of Motion Lumbar Spine Active Degrees Testing Position Standing Flexion 130 Extension 35 Rotation Left 35 Rotation Right 45 Lateral Flexion Left 37 Lateral Flexion 37 Right Hip Goniometric Range of Motion Hip Right Passive Testing Position Supine Internal Rotation 30 External Rotation 55 Left Passive Testing Position Supine Internal Rotation 40 External Rotation 60 Hip ROM Limitations Hip ROM Limitations Soft Tissue Tightness PT-OP-M Strength Start: 01/13/25 19:43 Freq: Status: Active Protocol: Document 01/15/25 07:30 LRN (Rec: 01/15/25 08:37 LRN Laptop) Trunk Strength Trunk Manual Muscle Testing Flexion 4+ Good+ Core Stabilization Strength is 4+/5 with rotation. Hip Strength Hip Manual Muscle Testing Right Internal Rotation 4 Good Comments Hip Cramped with hip IR testing. Strength is 5/5 except as indicated above. Left Internal Rotation 4+ Good+ Comments Hip Cramped with hip IR testing. Strength is 5/5 except as indicated above. PT-OP-T Assessment and Plan Start: 01/13/25 19:43 Freq: Status: Active Protocol: Document 04/05/25 17:40 LRN (Rec: 04/05/25 17:54 LRN Laptop) Physical Therapy Assessment Goals Two Impairment Dyspareunia with deep thrust aimed at abdomen Alf Goal (LTG) Decrease or eliminate pain with intercourse to improve pt pleasure with intercourse and reduce hesitation for intimacy with partner. LTG Duration 04/15/25 (04/05/25: NOT MET GOAL, rehab not completed ). One Impairment Pt lacks appropriate self care HEP Short Term Goal (STG Pt will be able to reduce hesitation and pain with ) intercourse with a pre intercourse routine (stretching, deep breathing and mindfulness technique). 01/15/25: Reviewed I/S program last session of supine lying w/hips on pillows with legs up on wall for static positioning. STG Duration 02/25/25 progressed 01/15/25 (04/05/25: NOT MET GOAL, rehab not completed) Alf Goal (LTG) Pt will be independent with a self care HEP of abdominal soft tissue mobilization, hip and trunk stretches. 01/15/25: HEP: Hip flexor & Piriformis stretch (sup, sit, longsit), TA tightening (4pt, I/S for sidelie R>L, & supine). LTG Duration 04/15/25 progressed 01/15/25 (04/05/25: NOT MET GOAL, rehab not completed) Assessment Summary Assessment Pt is a 24 yo female who is 3G3P, who had resolved pain with intercourse until 2 wks prior to starting physical therapy, and additionally she had postural changes of increased lordosis and decreased hip rotational mobility. Her PF was strong, but she had trouble relaxing her PF between contractions. The pt was seen for her initial evaluation and 1 treatmen visit. She has not been able to return to physical therapy due to lack of child support officer; therefore the pt is agreeable to discharge to her self care HEP as issued. Goals were not met as the pt did not complete her physical therapy plan. Physical Therapy Plan Discharge Physical Therapy Discharge Reasons No Longer Attending PT Discharge Comments The pt would most likely benefit from physical therapy in the future, but would need a new referral to return. Thank you for your referral.
== END 2025-04-16 10:18 | disposition home or self-care (01) ==
LOC: PHYS 07:30
PROVIDERS: Family Provider Nurse Practitioner Family; PCP Nurse Practitioner Family; Referring Provider Obstetrics & Gynecology; Visit Provider Obstetrics & Gynecology
DX: N94.12 Deep dyspareunia (principal)
CPT/HCPCS: 97110; 97162; 97535